=== PATIENT | male | born 1960 | race Caucasian/White ===

== ENCOUNTER 2017-03-27 08:48 | Emergency (ER) ==
[2017-03-27 08:57] VITALS: BP 159/121; TEMP 98.8
[2017-03-27] MEDS ORDERED: SODIUM CHLORIDE 1,000 ML IV STA (08:59)
[2017-03-27] MEDS ORDERED: GI COCKTAIL PO STA (08:59)
[2017-03-27] MEDS ORDERED: ASPIRIN CHEWABLE PO STA (09:03)
--- NOTE | 2017-03-27 09:04 | ED.PDOC ---
General ED Provider: Dr. JAIRO MARCOS Chief Complaint: Chest Pain Stated Complaint: Patient states he has had chest pain off and on every day lasting 1-2 hours. He was seen two week ago for fentanyl overdose. Denies any other drug use. Has been getting his medications for blood pressure in [facility] including Nitro. He was seen one or two months ago at [facility] for chest pain. He had a stress test that was negative. He admits to chronic use of tobacco use. Time Seen by Physician: 09:01 Mode of Arrival: Walk-In Information Source: Patient, Police Exam Limitations: No limitations Nursing and Triage Documentation Reviewed and Agree: Yes Cardiovascular Complaint Exam - Chest Pain Complaint/Exam Onset: Sudden Duration: constant Symptoms Are: Still present Timing: Constant Length of Chest Pain Episodes: 2 hours Initial Severity: Severe Current Severity: Severe Location: Reports: Midsternal Pain Radiates: Reports: Left arm Character: Reports: Tightness Aggravating: Reports: None Alleviating: Reports: Nitro (after 3 nitro ) Associated Signs and Symptoms: Denies: Diaphoresis, Nausea, Vomiting, Fever, Hemoptysis, Back pain, Abdominal pain, Dizziness, Short of air, Calf pain, Calf swelling History of Healthcare-Acquired Pneumonia: Reports: No AMI/ACS Risk Factors: Reports: Nitroglycerine use, Hypertension, Smoking. Denies: Cocaine use TAD Risk Factors: Reports: None Pulmonary Embolism Risk Factors: Reports: None Prior Care for this Complaint: No Recent Stress Test: Yes (2 months ago ) Recent Echo/LV Function: No JVD Present: No Subcutaneous Emphysema Present: No Diminshed Breath Sounds: No Reproducible Chest Wall Pain: No Bilateral Pulses Present: No Unequal Pulses Noted: No If Risk Factors for AMI/ACS Consider: EKG, Cardiac Enzymes, Serial Studies, Aspirin Documents Reviewed: EMS records, Labs, Imaging, EKG Retail Store Clerk Consulted: No Differential Diagnoses: Acute NV, Pulmonary Embolism Review of Systems - Review Of Systems Constitutional: Reports: No symptoms Eyes: Reports: No symptoms Ears, Nose, Mouth, Throat: Reports: No symptoms Respiratory: Reports: No symptoms Cardiac: Reports: Chest pain GI: Reports: No symptoms : Reports: No symptoms Musculoskeletal: Reports: Joint pain (left arm ) Skin: Reports: No symptoms Neurological: Reports: Anxiety Endocrine: Reports: No symptoms Hematologic/Lymphatic: Reports: No symptoms All Other Systems: Reviewed and Negative Past Medical History - Past Medical History Previously Healthy: Yes Endocrine: Reports: None Cardiovascular: Reports: Hypertension Respiratory: Reports: None Hematological: Reports: None Gastrointestinal: Reports: None Genitourinary: Reports: None Neuro/Psych: Reports: None Musculoskeletal: Reports: Arthritis, Back Pain Cancer: Reports: None - Surgical History General Surgical History: Reports: Appendectomy, Back Surgery (fx neck, bulging and herniated discs in lower back), Other (Left hand Hardware ) - Family History Family History: Reports: None - Social History Smoking Status: Former smoker Hx Substance Use: Yes (opiates) Alcohol Screening: None Physical Exam - Physical Exam Appearance: Ill-appearing Ill-appearing: Moderate Pain Distress: Severe Neck: Supple Respiratory: Airway patent, Breath sounds clear, Breath sounds equal, Respirations nonlabored Cardiovascular: RRR, Pulses normal, No rub, No murmur GI/: Soft, Nontender, No masses, Bowel sounds normal, No Organomegaly Musculoskeletal: Normal strength, ROM intact, No edema, No calf tenderness Skin: Warm, Dry Neurological: Sensation intact Psychiatric: Anxious Interpretation - Radiology Interpretation Radiology Interpretation By: ED Physician Radiology Results: Negative Exam Interpreted: Portable CXR - [employer] Rate: Normal Rhythm: Sinus Ectopy: None - EKG Interpretation Time of EKG #1: 08:50 Rate: Normal Rhythm: Sinus Ectopy: None [place]: NL ST Segment: Normal Interpretation: stacey EKG Time of EKG #2: 09:22 Rate: Normal Rhythm: Sinus Ectopy: None [place]: NL ST Segment: Normal Re-Evaluation - Re-Evaluation Time of Re-Evaluation: 09:30 Status: Improved Vital Signs Stable: Yes (bp better ) Pain Level: 0 - Re-Evaluation Time of Re-Evaluation: 09:56 Status: Worse Vital Signs Stable: Yes (137/101) Pain Level: 4 /10 Physician Notification - Case Discussed Physician Notified: Dr Ratliff Time of Notification: 10:27 (accepted to [facility] ) Critical Care Note - Critical Care Note Total Time (mins): 45 Course - Course Hematology/Chemistry: 03/27/17 09:10 03/27/17 09:10 Orders, Labs, Meds: Lab Review 03/27/17 09:10 WBC 8.26 RBC 4.85 Hgb 14.0 Hct 40.8 L MCV 84.1 MCH 28.9 MCHC 34.3 RDW Coeff of Surendra 13.3 Plt Count 212 Immature Gran % (Auto) 0.2 Neut % (Auto) 61.9 Lymph % (Auto) 27.5 Gregg % (Auto) 7.6 Eos % (Auto) 2.3 Baso % (Auto) 0.5 Immature Gran # (Auto) 0.0 Neut # 5.1 Lymph # 2.3 Gregg # 0.6 Eos # 0.2 Baso # 0.0 Sodium 143 Potassium 3.2 L Chloride 105 Carbon Dioxide 24 Anion Gap 17.2 BUN 12 Creatinine 0.76 Estimated GFR (MDRD) 105.00 BUN/Creatinine Ratio 15.78 Glucose 112 H Calcium 9.2 Total Bilirubin 0.78 AST 12 L ALT 20 Alkaline Phosphatase 78 Total Creatine Kinase 54 Troponin I 0.0170 B-Natriuretic Peptide 22 Total Protein 6.9 Albumin 3.4 Globulin 3.5 Albumin/Globulin Ratio 0.97 Orders Category Date Time Status EKG-(ED ONLY) Stat CARDIO 03/27/17 08:59 Ordered EKG-(ED ONLY) Stat CARDIO 03/27/17 09:33 Ordered ED WINK CUTTER OPERATOR APPLIED .ONCE EMERGENCY 03/27/17 08:59 Active ED IV/MEDIPORT/POWERPORT .ONCE EMERGENCY 03/27/17 08:59 Active B-TYPE NATRIURETIC PEPTIDE Stat LAB 03/27/17 09:10 Completed CBC W/ AUTO DIFF Stat LAB 03/27/17 09:10 Completed COMPREHENSIVE METABOLIC PANEL Stat LAB 03/27/17 09:10 Completed CREATINE KINASE Stat LAB 03/27/17 09:10 Completed D-DIMER Stat LAB 03/27/17 09:10 Received TROPONIN I Stat LAB 03/27/17 09:10 Completed Aspirin [Aspirin Chewable] MEDS 03/27/17 09:03 Discontinued 324 mg PO ONCE STA Mag-Al Plus//Lidocaine [Gi Cocktail] MEDS 03/27/17 08:59 Discontinued 30 ml PO ONCE STA Nitroglycerin [Nitro-Dur 0.4 mg/Hr] MEDS 03/27/17 10:14 Discontinued 1 patch TD ONCE STA Nitroglycerin [Nitrostat] MEDS 03/27/17 09:07 Discontinued 0.4 mg SL ONCE STA Nitroglycerin [Nitrostat] MEDS 03/27/17 09:23 Discontinued 0.4 mg SL ONCE STA Ondansetron HCl/Pf [Zofran 4 mg/2 ml] MEDS 03/27/17 09:23 Discontinued 4 mg IVP ONCE STA Sodium Chloride 0.9% [Sodium Chloride] 1,000 ml MEDS 03/27/17 08:59 Active IV 125 mls/hr CHEST, 1V AP ONLY Stat RADS 03/27/17 08:59 Completed Medications Generic Name Dose Route Start Last Admin Trade Name Edda PRN Reason Stop Dose Admin Sodium Chloride 1,000 mls @ 125 mls/hr 03/27/17 08:59 03/27/17 09:25 Sodium Chloride IV 03/27/17 16:58 125 mls/hr .Q8H STA Administration Discontinued Medications Generic Name Dose Route Start Last Admin Trade Name Jackq PRN Reason Stop Dose Admin Al Hydroxide/Mg Hydroxide 30 ml 03/27/17 08:59 03/27/17 09:18 Gi Cocktail PO 03/27/17 09:00 30 ml ONCE STA Administration Aspirin 324 mg 03/27/17 09:03 03/27/17 09:12 Aspirin Chewable PO 03/27/17 09:04 324 mg ONCE STA Administration Nitroglycerin 0.4 mg 03/27/17 09:07 03/27/17 09:17 Nitrostat SL 03/27/17 09:08 0.4 mg ONCE STA Administration Nitroglycerin 0.4 mg 03/27/17 09:23 03/27/17 09:24 Nitrostat SL 03/27/17 09:24 0.4 mg ONCE STA Administration Nitroglycerin 1 patch 03/27/17 10:14 Nitro-Dur 0.4 Mg/Hr TD 03/27/17 10:15 ONCE STA Ondansetron HCl 4 mg 03/27/17 09:23 03/27/17 09:26 Zofran 4 Mg/2 Ml IVP 03/27/17 09:24 4 mg ONCE STA Administration Vital Signs: Temp Pulse Resp BP Pulse Ox 03/27/17 08:49 98.8 F 79 20 159/121 H 96 TRAVIS Risk Score Age >/= 65: No >/= 3 CAD Risk Factors: Yes Known CAD (Stenosis >/= 50%): No ASA Use in Past 7 Days: Yes Severe Angina (>/= 2 episodes in 24 hours): Yes EKG ST Changes >/= 0.5mm: No Postive Cardiac Marker: No TRAVIS Total Score: 3 TRAVIS Risk Score: Risk Score Odds of by 30D 0 0.1 (0.1-0.2) 1 0.3 (0.2-0.3) 2 0.4 (0.3-0.5) 3 0.7 (0.6-0.9) 4 1.2 (1.0-1.5) 5 2.2 (1.9-2.6) 6 3.0 (2.5-3.6) 7 4.8 (3.8-6.1) Departure - Departure Time of Disposition: 10:28 Disposition: TSF SHORT-TRM HOSP Discharge Problem: Chest pain, Uncontrolled hypertension Condition: Fair Pt referred to PMD for follow-up: No Allergies/Adverse Reactions: Allergies No Known Allergies Allergy (Verified 03/27/17 08:57) Home Medications: Ambulatory Orders Alprazolam 1 mg PO BID 03/10/17 Dicyclomine HCl [Bentyl] 10 mg PO TID #30 capsule 03/10/17 Lisinopril 20 mg PO BID 03/10/17 Amlodipine Besylate [Norvasc] 2.5 mg PO DAILY 03/27/17 Aspirin [Aspirin EC] 325 mg PO DAILYWM 03/27/17 Clonidine HCl 0.2 mg PO QID 03/27/17 Hydrochlorothiazide 12.5 mg PO DAILY 03/27/17 Nitroglycerin [Nitrostat] 0.4 mg SL Q5MIN X 3 DOSES PRN 03/27/17 Pt. Stabilized Within Hospital's Capabilities/Transferred To: [facility] Disposition Discussed With: Patient
[2017-03-27] MEDS ORDERED: NITROSTAT SL STA ×2 (09:07→09:23)
[2017-03-27 09:16] LABS: BASOPHILS % (AUTO) 0.5 % (0.0-3.0); EOSINOPHILS # (AUTO) 0.2 K/ul (0.0-0.7); EOSINOPHILS % (AUTO) 2.3 % (0.0-7.0); HEMATOCRIT 40.8 % (42.0-52.0); IMMATURE GRANULOCYTE % (AUTO) 0.2 % (0.0-5.0); LYMPHOCYTES # (AUTO) 2.3 K/uL (0.60-3.4); LYMPHOCYTES % (AUTO) 27.5 (10.0-50.0); MEAN CORPUSCULAR HEMOGLOBIN 28.9 pg (27.0-31.0); MEAN CORPUSCULAR HGB CONC 34.3 (31.8-35.4); MEAN CORPUSCULAR VOLUME 84.1 fl (80.0-94.0); MONOCYTES # (AUTO) 0.6 K/uL (0.4-2.0); MONOCYTES % (AUTO) 7.6 (0-10); NEUTROPHILS # (AUTO) 5.1 K/ul (2.0-6.9); NEUTROPHILS % (AUTO) 61.9; PLATELET COUNT 212 10^3/uL (140-440); RED BLOOD COUNT 4.85 10^6/ul (4.70-6.10); WHITE BLOOD COUNT 8.26 K/ul (4.2-10.2)
[2017-03-27] MEDS ORDERED: ZOFRAN 4 MG/2 ML IVP STA (09:23)
--- NOTE | 2017-03-27 09:23 | DI ---
Exam: Portable single view chest. HISTORY: Chest pain.. COMPARISON: None. FINDINGS: A single portable AP view of the chest. The lungs are clear without consolidation or eff usion. There is no pneumothorax. There are no suspicious pulmonary nodules. The heart size and pu lmonary vasculature are within normal limits, allowing for portable technique. The osseous structur es are normal for age. IMPRESSION: No acute pulmonary disease.
[2017-03-27 09:44] LABS: ALBUMIN 3.4 g/dL (3.4-5.0); ALBUMIN/GLOBULIN RATIO 0.97; ANION GAP 17.2; BILIRUBIN,TOTAL 0.78 mg/dL (0.00-1.20); BUN/CREATININE RATIO 15.78; CALCIUM 9.2 mg/dL (8.2-10.2); CREATININE 0.76 mg/dL (0.60-1.10); POTASSIUM 3.2 mmol/L (3.5-5.1); TOTAL PROTEIN 6.9 g/dL (6.4-8.2); TROPONIN I 0.017 ng/ml (0.0000-0.4000)
[2017-03-27] MEDS ORDERED: NITRO-DUR 0.4 MG/HR TD STA (10:14)
== END 2017-03-27 11:22 | disposition short-term general hospital (02) ==
LOC: ED 08:48
DX: R07.9 Chest pain, unspecified (principal); I10 Essential (primary) hypertension; F17.210 Nicotine dependence, cigarettes, uncomplicated; Z79.899 Other long term (current) drug therapy
CPT/HCPCS: 36415; 80053; 82550; 83880; 84484; 85025; 85379; 93005; 93010; 96361; 96374; 99285